=== PATIENT | male | born 1970 | race Caucasian/White ===

== ENCOUNTER 2023-09-19 19:12 | Emergency (ER) | payer BC, SELFPAY ==
[2023-09-19 19:15] VITALS: BP 130/83; PULSE 84; RESP 14; TEMP 36.4; O2SAT 97
--- NOTE | 2023-09-19 20:16 | ED.ANIMALBIT ---
HPI - Animal Bite General Chief Complaint: Animal Bite Stated Complaint: dog bite to chest Time Seen by Provider: 09/19/23 19:44 Source: patient Mode of arrival: ambulatory Limitations: no limitations History of Present Illness HPI narrative: This is a 53-year-old male who presents to the ED with chief complaint of dog bite to the left chest area that occurred around 18 30 this evening. Patient reports the welcoming new neighbors and 1 over to their house. Reports that the neighbor's dog started to bite his 's pants so he tried to intervene. Reports that the dog's then jumped up at him and bit him on the left chest through his shirt. Denies any further sites of pain or injury. Unsure of dog just vaccination status but ensures that they are following up with owners and will have the dog observed. Related Data Allergies Allergy/AdvReac Type Severity Reaction Status Date / Time No Known Allergies Allergy Verified 09/19/23 19:21 Review of Systems Review of Systems: All systems as dictated in HPI Exam Narrative: GENERAL: Well-appearing, well-nourished, and in no acute distress. HEAD: Normocephalic, atraumatic. EYES: PERRLA and EOMI. ENT: Nares clear, no rhinorrhea or epistaxis. Mucous membranes moist. Oropharynx without tonsillar hypertrophy exudate or other lesions. NECK: Supple. No adenopathy or masses. CHEST: No respiratory distress. Clear to auscultation. No wheezes rales or rhonchi HEART: Regular rate and rhythm. No murmur heard. Normal peripheral pulses. ABDOMEN: Soft, nontender, nondistended, normal active bowel sounds. MSK: Normal range of motion. No edema. SKIN: Mild abrasions to the left chest with mild ecchymosis present as well. No laceration or gaping wound. No puncture wounds NEURO: Alert and oriented x3. No focal deficits. PSYCH: Normal mood and affect. Course Vital Signs Vital signs: Vital Signs Temperature 97.5 F L 09/19/23 19:15 Pulse Rate 84 09/19/23 19:15 Respiratory Rate 14 09/19/23 19:15 Blood Pressure 130/83 09/19/23 19:15 Pulse Oximetry 97 09/19/23 19:15 Oxygen Delivery Room Air 09/19/23 19:15 Temperature 98.0 F 09/19/23 20:31 Pulse Rate 73 09/19/23 20:31 Respiratory Rate 18 09/19/23 20:31 Blood Pressure 129/76 09/19/23 20:31 Pulse Oximetry 100 09/19/23 20:31 Oxygen Delivery Room Air 09/19/23 19:15 MDM - Animal Bite MDM Narrative Medical decision making narrative: This is a 53-year-old male who presents to the ED with chief complaint of dog bite injury that occurred just prior to arrival. The dog is owned by their neighbors. Vitals are normal Exam shows abrasion injury to the left chest with bruising. No puncture wounds or lacerations. The wound was well cleansed and irrigated here. Tdap updated. Discussed with the patient to avoid shots as he can be observed by their neighbors. He is working on getting the dog's vaccination papers now. Instructed to follow-up ER or health department if they are unable to observe the dog for 10 days or if the dog exhibits rabies behaviours. Pt will be discharged in stable condition. Return precautions given and supportive measures discussed. Pt is understanding and agreeable with plan for discharge and follow-up with PCP. Discharge Plan Discharge Clinical Impression: Dog bite Patient Disposition: Home, Self-Care Condition: Stable Instructions: Antibiotic Form, Animal Bite (ED) Additional Instructions: Your exam today is reassuring overall. Have the dog observed for the next week. There is no need to start rabies vaccines unless the animal starts to exhibit abnormal behaviors consistent with previous infection Use Tylenol and ibuprofen for local pain control. Take Augmentin for the bacterial prevention If you have any new or worsening symptoms please return to the ER for further evaluation. Prescriptions: New amoxicillin-pot clavulanate 875-125 mg tablet 1 tablet P
[2023-09-19] MEDS: TETANUS,DIPHTHERIA,AC PERTUSSIS ADULT (0.5 ML) BOOSTRIX IM (20:28)
[2023-09-19 20:31] VITALS: BP 129/76; PULSE 73; RESP 18; TEMP 36.7; O2SAT 100
== END 2023-09-19 20:10 | disposition home or self-care (01) ==
PROVIDERS: Emergency Provider Physician Assistant; PCP Family Medicine
DX: S21.152A Open bite of left front wall of thorax without penetration into thoracic cavity, initial encounter (principal); Z23 Encounter for immunization; W54.0XXA Bitten by dog, initial encounter
CPT/HCPCS: 90471; 90715; 99283